=== PATIENT | male | born 1950 | race Caucasian/White ===

== ENCOUNTER 2016-11-05 06:27 | Day surgery (SDC) | payer MEDICAID ==
[~2016-11-05 06:27] MED LIST: Dextrose 5%-0.45% NaCl 1,000 ML IV SCH; Midazolam 1 MG/ML 2 ML SDV ONE; Sodium Chloride 0.9% 10 ML Syringe FLUSH PRN; fentaNYL 100 MCG/2 ML SDV ONE
[2016-11-05] MEDS ORDERED: fentaNYL 100 MCG/2 ML SDV IV ONE ×5 (06:50→09:18)
[2016-11-05] MEDS ORDERED: Midazolam 1 MG/ML 2 ML SDV IV ONE ×8 (06:52→09:18)
--- NOTE | 2016-11-05 08:18 | OR ---
{null, DATE: 11/05/2016 PROCEDURES: Total colonoscopy, NBI, and multiple cold snare polypectomies. INSTRUMENT USED: [id number]-[id number] Olympus video colonoscope PREMEDICATIONS: Fentanyl 150 mcg intravenous, Versed 4.5 mg intravenous. Nasal 2 L O2 cannula. The procedure was done under pulse oximetry, BP recording, and front desk monitor. INDICATION: The patient with recent alteration in bowel habits, persistent in nature and not responsive to medical measures. Colonoscopic examination is done for detection of any polypoid lesions and removal, endoscopic hemostasis therapy if needed. DESCRIPTION OF PROCEDURE: Initial rectal exam showed external hemorrhoidal tags. Rigid anoscopy showed small internal hemorrhoids without bleeding from them. The colonoscope was passed up to the ileocecal area, photographs were taken of the normal-appearing cecum, identified by double-bulged ileocecal folds and appendiceal orifice. The examination was a bit prolonged due to the tortuosity of the colon related to adhesions and also presence of significant amount of solid fecal material. No bleeding was noted from any of the visualized areas at the commencement of the examination. No stricture. No vascular ectasia. No large isolated ulcerations seen. No evidence of diffuse inflammatory bowel disease in the form of friability, contact bleeding, or ulcerations. The examination was compromised in quite a few areas due to the presence of solid adherent fecal material that could not be aspirated clear. In the proximal ascending colon, 3 mm sized benign-appearing polyp was noted, NBI views were obtained, photographs were taken, cold snare polypectomy was done, the tissue was retrieved and sent for histopathology. Probing the proximal sides of folds and flexures, using adequate distention and clearing of the stool material, withdrawal of the scope was made. In the distal descending colon, 5 mm sized benign-appearing polyp was noted, NBI views were obtained, photographs were taken, cold snare polypectomy was done, the tissue was retrieved and sent for histopathology. No bleeding was noted from any of the visualized areas at the completion of examination. IMPRESSION: 1. External and internal hemorrhoids. 2. Multiple colonic polyps. The patient tolerated the procedure well. [facility] /[id number] }
[2016-11-05 09:14] VITALS: BP 141/70
== END 2016-11-05 09:10 | disposition home or self-care (01) ==
LOC: DL.ENDO 06:27
PROVIDERS: ATTEND Internal Medicine Gastroenterology
DX: D12.2 Benign neoplasm of ascending colon (principal); D12.4 Benign neoplasm of descending colon; K64.8 Other hemorrhoids; J44.9 Chronic obstructive pulmonary disease, unspecified; F41.1 Generalized anxiety disorder; F32.9 Major depressive disorder, single episode, unspecified; B18.2 Chronic viral hepatitis C; F10.21 Alcohol dependence, in remission; Z98.890 Other specified postprocedural states; Z79.899 Other long term (current) drug therapy
CPT/HCPCS: 45385; J2250; J3010; J7042

== ENCOUNTER 2016-11-29 14:15 | Emergency (ER) | payer MEDICAID ==
--- NOTE | 2016-11-29 14:12 | EDM.PDOC ---
ED HPI GENERAL MEDICAL PROBLEM - General Chief Complaint: Chest Pain Stated Complaint: IN BY AMBULANCE Time Seen by Provider: 11/29/16 14:11 Source of Information: Reports: Patient, EMS Notes Reviewed, RN, RN Notes Reviewed History Limitations: Reports: No Limitations - History of Present Illness INITIAL COMMENTS - FREE TEXT/NARRATIVE: Arrives by ambulance with complaint of chest pain on/off x3 days. Patient takes nitroglycerin sublingual 0.4mg x1 today without relief of pain. EMS gave aspirin 325mg p/o/ x1. Complaining of SOB. Denies nausea or vomiting. Pain radiates to left lower elbow. Left Chest Pain Score (Numeric/FACES): 4 - Related Data Allergies Allergy/AdvReac Type Severity Reaction Status Date / Time No Known Allergies Allergy Verified 11/05/16 06:58 Home Meds: Home Meds Gabapentin [Neurontin] 600 mg PO TID 03/06/15 [History] Lisinopril 20 mg PO DAILY 03/06/15 [History] Metoprolol Succinate [Toprol XL] 50 mg PO DAILY 03/06/15 [History] Warfarin Sodium [Coumadin] 6 mg PO DAILY 03/06/15 [History] Albuterol [Ventolin HFA] 2 puff INH DAILY PRN 05/31/15 [History] Sertraline [Zoloft] 50 mg PO BEDTIME 07/04/15 [History] Fluticasone/Salmeterol [Advair 100-50] 50 mcg INH Q12H 07/05/15 [History] Famciclovir [Famvir] 250 mg PO DAILY 09/24/15 [History] Albuterol [Proventil HFA] 1 - 2 puff INH ASDIRECTED 11/04/16 [History] Aspirin [Halfprin] 1 tab PO DAILY 11/04/16 [History] Cyclobenzaprine [Flexeril] 1 tab PO ASDIRECTED PRN 11/04/16 [History] Hydrochlorothiazide 0.5 tab PO DAILY 11/04/16 [History] Ipratropium/Albuterol Sulfate [Combivent Respimat Inhal [place]] 2 puff INH ASDIRECTED 11/04/16 [History] Rosuvastatin [Crestor] 20 mg PO BEDTIME 11/04/16 [History] Simethicone 1 tab PO ASDIRECTED PRN 11/04/16 [History] Past Medical History HEENT History: Reports: Sinusitis, Other (See Below) Other HEENT History: infected mastoid and hole in right eardrum Cardiovascular History: Reports: Afib, Angina, Bypass, High Cholesterol, Hypertension, Other (See Below) Other Cardiovascular History: aorta bypass Respiratory History: Reports: COPD Gastrointestinal History: Reports: Bowel Obstruction, Chronic Constipation, Chronic Diarrhea, Colon Polyp, Diverticulosis, GERD, Hemorrhoids (internal), Hepatitis Genitourinary History: Reports: None Musculoskeletal History: Reports: Back Pain, Chronic, Other (See Below) (DJD. Foot drop, right) Other Musculoskeletal History: herniated disc from neck to back Neurological History: Reports: CVA Psychiatric History: Reports: Anxiety, Depression Endocrine/Metabolic History: Reports: None, Other (See Below) (hyperglycemia) Hematologic History: Reports: None Immunologic History: Reports: None Oncologic (Cancer) History: Reports: None Dermatologic History: Reports: None Other Dermatologic History: shingels - Infectious Disease History Infectious Disease History: Reports: Chicken Pox, Hepatitis C, Shingles - Past Surgical History HEENT Surgical History: Reports: None Cardiovascular Surgical History: Reports: Other (See Below) (bilateral fem-pop bypass 2012. Angiogram 2011.) Other Cardiovascular Surgeries/Procedures: aorta bifemoral bypass surg GI Surgical History: Reports: Colonoscopy, EGD, Hernia Repair/Other Neurological Surgical History: Reports: C-Spine Musculoskeletal Surgical History: Reports: Other (See Below) (wrist surgery.) Other Musculoskeletal Surgeries/Procedures:: cervical spine surg, R) wrist surg Social & Family History - Family History Family Medical History: Noncontributory - Tobacco Use Smoking Status *Q: Light Tobacco Smoker Years of Tobacco use: 45 Packs/Tins Daily: 0.2 Used Tobacco, but Quit: No Month Tobacco Last Used: 02/19/2013 Second Hand Smoke Exposure: Yes - Caffeine Use Caffeine Use: Reports: Coffee Other Caffeine Use: 4-5 cups - Alcohol Use Days Per Week of Alcohol Use: 0 - Recreational Drug Use Recreational Drug Use: Yes Drug Use in Last 12 Months: Yes Recreational Drug Type: Reports: Cocaine, Marijuana/Hashish Recreational Drug Use Frequency: Rarely - Living Situation & Occupation Living situation: Reports: , with Family Occupation: Disabled ED ROS GENERAL - Review of Systems Review Of Systems: ROS reveals no pertinent complaints other than HPI. ED EXAM, GENERAL - Physical Exam Exam: See Below Exam Limited By: No Limitations General Appearance: Thin (chronically ill appearing.) Eye Exam: Bilateral Eye: Normal Inspection Ears: Normal External Exam, Normal Canal, Hearing Grossly Normal, Normal TMs Nose: Normal Inspection, Normal Mucosa, No Blood Throat/Mouth: Normal Inspection, Normal Lips, Normal Teeth, Normal Gums, Normal Oropharynx, Normal Voice, No Airway Compromise Head: Atraumatic, Normocephalic Neck: Normal Inspection, Supple, Non-Tender, Full Range of Motion Respiratory/Chest: Decreased Breath Sounds (in bilateral bases, course vesicular breath sounds. ) Cardiovascular: Normal Peripheral Pulses, Regular Rate, Rhythm, No Edema, No Gallop, No JVD, No Murmur, No Rub GI/Abdominal: Normal Bowel Sounds, Soft, Non-Tender, No Organomegaly, No Distention, No Abnormal Bruit, No Mass (Male) Exam: Deferred Rectal (Males) Exam: Deferred Back Exam: Normal Inspection, Full Range of Motion, NT Extremities: Normal Inspection, Normal Range of Motion, Non-Tender, Normal Capillary Refill, No Pedal Edema Neurological: Alert, Oriented, CN II-XII Intact, Normal Cognition, Normal Gait, Normal Reflexes, No Motor/Sensory Deficits Psychiatric: Normal Affect, Normal Mood Skin Exam: Warm, Dry, Intact, Normal Color, No Rash EKG INTERPRETATION EKG Date: 11/29/16 Time: 14:16 Rhythm: other (sinus rhythm) Rate (beats/min): 60 [place]: normal P-wave: present QRS: normal ST-T: other (abnormal T, consider ischemia.) QT: normal Course - Vital Signs Last Recorded V/S: Last Vital Signs Temp 36.8 C 11/29/16 14:37 Pulse 65 11/29/16 14:37 Resp 17 11/29/16 14:37 BP 183/88 H 11/29/16 14:37 Pulse Ox 94 L 11/29/16 14:37 - Orders/Labs/Meds Orders: Active Orders 24 hr Category Date Time Status EKG 12 Lead [EKG Documentation Completion] [RC] STAT Care 11/29/16 14:15 Active Peripheral IV Care [RC] . DIRECTED Care 11/29/16 14:16 Active Sodium Chloride 0.9% [Saline Flush] Med 11/29/16 14:15 Active 10 ml FLUSH ASDIRECTED PRN Peripheral IV Insertion Adult [OM.PC] Stat Oth 11/29/16 14:15 Ordered Medication Orders Sodium Chloride (Saline Flush) 10 ml FLUSH ASDIRECTED PRN PRN Reason: Keep Vein Open Labs: Laboratory Tests 11/29/16 11/29/16 11/29/16 Range/Units 14:23 14:23 14:23 WBC 8.0 (5.0-10.0) 10^3/uL RBC 4.23 L (4.6-6.2) 10^6/uL Hgb 14.5 (14.0-18.0) g/dL Hct 41.3 (40.0-54.0) % MCV 97.6 (80-100) fL MCH 34.3 H (27.0-34.0) pg MCHC 35.1 H (33.0-35.0) g/dL Plt Count 262 (150-450) 10^3/uL Neut % (Auto) 56.9 (42.2-75.2) % Lymph % (Auto) 32.3 (20.5-50.1) % [place] % (Auto) 7.7 (2-8) % Eos % (Auto) 2.5 (1.0-3.0) % Baso % (Auto) 0.6 (0.0-1.0) % PT 10.0 (9.0-12.0) SEC INR 1.0 (0.9-1.2) APTT 29.1 (22.0-34.0) SEC Sodium 138 (135-145) mmol/L Potassium 3.4 L (3.6-5.0) mmol/L Chloride 102 (101-111) mmol/L Carbon Dioxide 24.0 (21.0-31.0) mmol/L Anion Gap 15.4 BUN 13 (7-18) mg/dL Creatinine 0.7 (0.6-1.3) mg/dL Est Cr Clr Drug Dosing 85.50 mL/min Estimated GFR (MDRD) > 60 BUN/Creatinine Ratio 18.57 Glucose 98 (74-105) mg/dL Calcium 8.6 (8.4-10.2) mg/dl Total Bilirubin 0.5 (0.2-1.0) mg/dL AST 20 (10-42) IU/L ALT 16 (10-60) IU/L Alkaline Phosphatase 62 (42-121) IU/L Troponin I < 0.02 (0.00-0.02) ng/ml Total Protein 6.8 (6.7-8.2) g/dl Albumin 3.6 (3.2-5.5) g/dl Globulin 3.2 Albumin/Globulin Ratio 1.13 Meds: Medications Generic Name Dose Route Start Last Admin Trade Name Freq PRN Reason Stop Dose Admin Sodium Chloride 10 ml 11/29/16 14:15 Saline Flush FLUSH ASDIRECTED PRN Keep Vein Open Discontinued Medications Generic Name Dose Route Start Last Admin Trade Name Freq PRN Reason Stop Dose Admin Nitroglycerin 1 gm 11/29/16 14:16 11/29/16 14:20 Nitro-Bid 2% TOP 11/29/16 14:17 1 gm ONETIME ONE Administration - Radiology Interpretation Free Text/Narrative:: Chest x-ray: Chronic COPD changes. Hyperinflation. No acute process. See rad report. Departure - Departure Time of Disposition: 15:21 Disposition: DC/Tfer to [facility] 02 Reason for Transfer *Q: Primary PCI Indicated Condition: serious Clinical Impression: Unstable angina, Acute coronary syndrome Forms: ED Department Discharge, Interfacility Transfer EMTALA - My Orders Last 24 Hours: My Active Orders 11/29/16 14:15 EKG 12 Lead [EKG Documentation Completion] [RC] STAT Sodium Chloride 0.9% [Saline Flush] 10 ml FLUSH ASDIRECTED PRN Peripheral IV Insertion Adult [OM.PC] Stat 11/29/16 14:16 Peripheral IV Care [RC] . DIRECTED - Assessment/Plan Last 24 Hours: My Active Orders 11/29/16 14:15 EKG 12 Lead [EKG Documentation Completion] [RC] STAT Sodium Chloride 0.9% [Saline Flush] 10 ml FLUSH ASDIRECTED PRN Peripheral IV Insertion Adult [OM.PC] Stat 11/29/16 14:16 Peripheral IV Care [RC] . DIRECTED
[~2016-11-29 14:15] MED LIST changes: -Dextrose 5%-0.45% NaCl 1,000 ML IV SCH; -Midazolam 1 MG/ML 2 ML SDV ONE; -fentaNYL 100 MCG/2 ML SDV ONE
[2016-11-29] MEDS ORDERED: Nitroglycerin 2% Oint 1 GM UD Packet TOP ONE (14:16)
[2016-11-29 14:41] VITALS: BP 183/88
[2016-11-29 14:49] LABS: CHLORIDE,CL 102 mmol/L (101-111); SODIUM,NA 138 mmol/L (135-145)
--- NOTE | 2016-12-21 08:52 | EKG ---
11/29/2016- SHANTELL FRANKLIN - This is a standard 12-lead EKG showing normal sinus rhythm, ventricular rate of 60 beats per minute. Normal PVR interval and QRS duration. Normal axis. No significant ST-T changes. [facility] /[id number]
== END 2016-11-29 16:10 ==
LOC: DL.ED 14:15
DX: I24.9 Acute ischemic heart disease, unspecified (principal); Z98.890 Other specified postprocedural states; I48.91 Unspecified atrial fibrillation; F32.9 Major depressive disorder, single episode, unspecified; E78.00 Pure hypercholesterolemia, unspecified; I10 Essential (primary) hypertension; F17.210 Nicotine dependence, cigarettes, uncomplicated; Z95.1 Presence of aortocoronary bypass graft; Z79.899 Other long term (current) drug therapy; J44.9 Chronic obstructive pulmonary disease, unspecified; Z86.73 Personal history of transient ischemic attack (TIA), and cerebral infarction without residual deficits; Z79.82 Long term (current) use of aspirin; Z79.01 Long term (current) use of anticoagulants
CPT/HCPCS: 36415; 71010; 80053; 84484; 85025; 85610; 85730; 93005; 99285; A9270

== ENCOUNTER 2018-03-21 08:34 | Emergency (ER) | payer MEDICARE, MEDICAID ==
[2018-03-21 08:38] VITALS: BP 153/75
[2018-03-21] MEDS ORDERED: Sodium Chloride 0.9% 10 ML Syringe FLUSH PRN (09:05)
[2018-03-21] MEDS ORDERED: Morphine 2 MG/ML Syringe IVPUSH ONE ×2 (09:08→11:02)
[2018-03-21] MEDS ORDERED: Ondansetron 4 MG/2 ML SDV IV ONE (09:08)
--- NOTE | 2018-03-21 09:10 | EDM.PDOC ---
"ED HPI GENERAL MEDICAL PROBLEM - General Chief Complaint: Gastrointestinal Problem Stated Complaint: RECTAL BLEEDING Time Seen by Provider: 03/21/18 08:45 Source of Information: Reports: Patient, Old Records, RN, RN Notes Reviewed History Limitations: Reports: No Limitations - History of Present Illness INITIAL COMMENTS - FREE TEXT/NARRATIVE: Pt presents to ER from home by POV with c/o onset of abdominal pain and bloody stools yesterday. Pt describes a deep aching pain in the suprapubic and LLQ abdomen. He admits to loss of appetite and nausea. Denies fever, chills, or vomiting. Pt states that he has experienced unexpected/unexplained weight loss of approx. 30lbs over the past year. Pt states he has had several colonoscopies. Records indicate the most recent colonoscopy was 11/05/[address] Cuenca. Pt denies shortness of breath, lightheadedness, chest pain, syncope, rectal pain, or urinary symptoms. Onset Date: 03/20/18 Duration: Constant Location: Reports: Abdomen Quality: Reports: Ache Severity: Severe Improves with: Reports: None Worsens with: Reports: None Associated Symptoms: Reports: No Other Symptoms Pelvic Pain Score (Numeric/FACES): 8 - Related Data Allergies Allergy/AdvReac Type Severity Reaction Status Date / Time No Known Allergies Allergy Verified 03/21/18 08:39 Home Meds: Home Meds Gabapentin [Neurontin] 600 mg PO TID 03/06/15 [History] Lisinopril 20 mg PO DAILY 03/06/15 [History] Metoprolol Succinate [Toprol XL] 75 mg PO DAILY 03/06/15 [History] Albuterol [Ventolin HFA] 2 puff INH DAILY PRN 05/31/15 [History] Sertraline [Zoloft] 75 mg PO BEDTIME 07/04/15 [History] Fluticasone/Salmeterol [Advair 100-50] 50 mcg INH Q12H 07/05/15 [History] Albuterol [Proventil HFA] 1 - 2 puff INH ASDIRECTED 11/04/16 [History] Hydrochlorothiazide 25 mg PO DAILY 11/04/16 [History] Ipratropium/Albuterol Sulfate [Combivent Respimat Inhal [place]] 2 puff INH QID [History] Rosuvastatin [Crestor] 20 mg PO BEDTIME 11/04/16 [History] Simethicone 1 tab PO ASDIRECTED PRN 11/04/16 [History] Clopidogrel [Plavix] 75 mg PO DAILY 03/21/18 [History] Methylcellulose [Citrucel] 15 ml PO DAILY 03/21/18 [History] Past Medical History HEENT History: Reports: Sinusitis, Other (See Below) Other HEENT History: infected mastoid and hole in right eardrum Cardiovascular History: Reports: Afib, Angina, Bypass, High Cholesterol, Hypertension, Other (See Below) Other Cardiovascular History: aorta bypass Respiratory History: Reports: COPD Gastrointestinal History: Reports: Bowel Obstruction, Chronic Constipation, Chronic Diarrhea, Colon Polyp, Diverticulosis, GERD, Hemorrhoids, Hepatitis Genitourinary History: Reports: None Musculoskeletal History: Reports: Back Pain, Chronic, Other (See Below) Other Musculoskeletal History: herniated disc from neck to back Neurological History: Reports: CVA Psychiatric History: Reports: Anxiety, Depression Endocrine/Metabolic History: Reports: None, Other (See Below) Hematologic History: Reports: None Immunologic History: Reports: None Oncologic (Cancer) History: Reports: None Dermatologic History: Reports: None Other Dermatologic History: shingels - Infectious Disease History Infectious Disease History: Reports: Chicken Pox, Hepatitis C, Shingles - Past Surgical History HEENT Surgical History: Reports: None Cardiovascular Surgical History: Reports: Other (See Below) Other Cardiovascular Surgeries/Procedures: aorta bifemoral bypass surg GI Surgical History: Reports: Colonoscopy, EGD, Hernia Repair/Other Neurological Surgical History: Reports: C-Spine Musculoskeletal Surgical History: Reports: Other (See Below) Other Musculoskeletal Surgeries/Procedures:: cervical spine surg, R) wrist surg Social & Family History - Family History Family Medical History: Noncontributory - Tobacco Use Smoking Status *Q: Current Every Day Smoker Tobacco Use Within Last Twelve Months: Cigarettes Years of Tobacco use: 50 Packs/Tins Daily: 0.5 - Caffeine Use Caffeine Use: Reports: Coffee Other Caffeine Use: 4-5 cups - Recreational Drug Use Recreational Drug Use: Yes Drug Use in Last 12 Months: No Recreational Drug Type: Reports: Marijuana/Hashish - Living Situation & Occupation Living situation: Reports: , with Family Occupation: Disabled ED ROS GENERAL - Review of Systems Review Of Systems: ROS reveals no pertinent complaints other than HPI. ED EXAM, GI/ABD - Physical Exam Exam: See Below Exam Limited By: No Limitations General Appearance: Alert, No Apparent Distress, Thin, Cachetic Eyes: Bilateral: Normal Appearance Ears: Hearing Grossly Normal Nose: Normal Inspection, Normal Mucosa, No Blood Throat/Mouth: Normal Lips, Normal Oropharynx, Normal Voice, No Airway Compromise , Other (Dry oral membranes) Head: Atraumatic, Normocephalic Neck: Normal Inspection, Supple, Non-Tender, Full Range of Motion Respiratory/Chest: No Respiratory Distress, Lungs Clear, Normal Breath Sounds, No Accessory Muscle Use, Chest Non-Tender Cardiovascular: Normal Peripheral Pulses, No Edema, No JVD, Irregularly Irregular GI/Abdominal Exam: Normal Bowel Sounds, Soft, No Distention, Tender (at suprapubic and LLQ). No: Guarding, Rigid, Rebound (Male) Exam: Deferred Rectal (Males) Exam: Bloody Stool Back Exam: No: CVA Tenderness (L), CVA Tenderness (R) Extremities: Normal Inspection, Normal Range of Motion, Non-Tender, Normal Capillary Refill, No Pedal Edema Neurological: Alert, Oriented, CN II-XII Intact, Normal Cognition, No Motor/ Sensory Deficits Psychiatric: Normal Affect, Normal Mood Skin Exam: Warm, Dry, Intact, Normal Color, No Rash EKG INTERPRETATION EKG Date: 03/21/18 Time: 08:50 Rhythm: A-Fib Rate (Beats/Min): 71 [place]: RAD-Right [place] Deviation (borderline) P-Wave: Variable QRS: Other (PVC, PAC) ST-T: Other (nonspecific T wave abnormalities) QT: Normal Comparison: NA - No Prior EKG Course - Vital Signs Last Recorded V/S: Last Vital Signs Temp 36.4 C 03/21/18 08:37 Pulse 73 03/21/18 08:37 Resp 18 03/21/18 08:37 BP 153/75 H 03/21/18 08:37 Pulse Ox 97 03/21/18 08:37 - Orders/Labs/Meds Orders: Active Orders 24 hr Category Date Time Status EKG Documentation Completion [RC] URGENT Care 03/21/18 08:44 Active Peripheral IV Care [RC] . DIRECTED Care 03/21/18 09:06 Active Abdomen Pelvis w Cont [CT] Stat Exams 03/21/18 09:43 Taken UA W/MICROSCOPIC [URIN] Stat Lab 03/21/18 09:06 Ordered Sodium Chloride 0.9% [Saline Flush] Med 03/21/18 09:05 Active 10 ml FLUSH ASDIRECTED PRN Peripheral IV Insertion Adult [OM.PC] Stat Oth 03/21/18 09:06 Ordered Medication Orders Sodium Chloride (Saline Flush) 10 ml FLUSH ASDIRECTED PRN PRN Reason: Keep Vein Open Last Admin: 03/21/18 09:22 Dose: 10 ml Labs: Laboratory Tests 03/21/18 03/21/18 03/21/18 Range/Units 08:50 08:50 08:50 WBC 10.8 H (5.0-10.0) 10^3/uL RBC 4.08 L (4.6-6.2) 10^6/uL Hgb 13.8 L (14.0-18.0) g/dL Hct 39.8 L (40.0-54.0) % MCV 97.5 (80-100) fL MCH 33.8 (27.0-34.0) pg MCHC 34.7 (33.0-35.0) g/dL Plt Count 261 (150-450) 10^3/uL Neut % (Auto) 64.5 (42.2-75.2) % Lymph % (Auto) 25.6 (20.5-50.1) % Burt % (Auto) 7.7 (2-8) % Eos % (Auto) 1.8 (1.0-3.0) % Baso % (Auto) 0.4 (0.0-1.0) % PT 9.7 (9.0-12.0) SEC INR 1.0 (0.9-1.2) APTT (22.0-34.0) SEC Sodium 137 (135-145) mmol/L Potassium 3.3 L (3.6-5.0) mmol/L Chloride 102 (101-111) mmol/L Carbon Dioxide 24.0 (21.0-31.0) mmol/L Anion Gap 14.3 BUN 31 H (7-18) mg/dL Creatinine 1.1 (0.6-1.3) mg/dL Est Cr Clr Drug Dosing 61.76 mL/min Estimated GFR (MDRD) > 60 BUN/Creatinine Ratio 28.18 Glucose 100 (74-105) mg/dL Lactic Acid (0.5-2.2) mmol/L Calcium 8.6 (8.4-10.2) mg/dl Total Bilirubin 0.7 (0.2-1.0) mg/dL AST 21 (10-42) IU/L ALT 12 (10-60) IU/L Alkaline Phosphatase 54 (42-121) IU/L Total Protein 7.0 (6.7-8.2) g/dl Albumin 3.7 (3.2-5.5) g/dl Globulin 3.3 Albumin/Globulin Ratio 1.12 Amylase (28-100) U/L Lipase (22-51) U/L 03/21/18 03/21/18 03/21/18 Range/Units 08:50 08:50 08:50 WBC (5.0-10.0) 10^3/uL RBC (4.6-6.2) 10^6/uL Hgb (14.0-18.0) g/dL Hct (40.0-54.0) % MCV (80-100) fL MCH (27.0-34.0) pg MCHC (33.0-35.0) g/dL Plt Count (150-450) 10^3/uL Neut % (Auto) (42.2-75.2) % Lymph % (Auto) (20.5-50.1) % Burt % (Auto) (2-8) % Eos % (Auto) (1.0-3.0) % Baso % (Auto) (0.0-1.0) % PT (9.0-12.0) SEC INR (0.9-1.2) APTT 26.5 (22.0-34.0) SEC Sodium (135-145) mmol/L Potassium (3.6-5.0) mmol/L Chloride (101-111) mmol/L Carbon Dioxide (21.0-31.0) mmol/L Anion Gap BUN (7-18) mg/dL Creatinine (0.6-1.3) mg/dL Est Cr Clr Drug Dosing mL/min Estimated GFR (MDRD) BUN/Creatinine Ratio Glucose (74-105) mg/dL Lactic Acid 1.2 (0.5-2.2) mmol/L Calcium (8.4-10.2) mg/dl Total Bilirubin (0.2-1.0) mg/dL AST (10-42) IU/L ALT (10-60) IU/L Alkaline Phosphatase (42-121) IU/L Total Protein (6.7-8.2) g/dl Albumin (3.2-5.5) g/dl Globulin Albumin/Globulin Ratio Amylase 117 H (28-100) U/L Lipase 25 (22-51) U/L Meds: Medications Generic Name Dose Route Start Last Admin Trade Name Freq PRN Reason Stop Dose Admin Sodium Chloride 10 ml 03/21/18 09:05 03/21/18 09:22 Saline Flush FLUSH 10 ml ASDIRECTED PRN Administration Keep Vein Open Discontinued Medications Generic Name Dose Route Start Last Admin Trade Name Freq PRN Reason Stop Dose Admin Sodium Chloride 1,000 mls @ 999 mls/hr 03/21/18 09:16 03/21/18 09:21 Normal Saline IV 03/21/18 10:16 999 mls/hr .BOLUS ONE Administration Iopamidol 75 ml 03/21/18 09:42 03/21/18 10:03 Isovue-300 (61%) IVPUSH 03/21/18 09:43 75 ml ONETIME ONE Administration Morphine Sulfate 2 mg 03/21/18 09:08 03/21/18 09:21 Morphine IVPUSH 03/21/18 09:09 2 mg ONETIME ONE Administration Ondansetron HCl 4 mg 03/21/18 09:08 03/21/18 09:21 Zofran IV 03/21/18 09:09 4 mg ONETIME ONE Administration - Radiology Interpretation Free Text/Narrative:: [facility] Final Radiology Report Call: [phone] assistance Online chat: [email or web address] Name: SHANTELL FRANKLIN Age: 68Years M Date: 03/21/2018 SSN: -- : [id number] Study: CT ABDOMEN/PELVIS W Requesting Physician: CELSA CERVANTES Images: 1 Addl Studies: Provided Clinical History: Contrast: With Contrast Medium: Isovue 300 Contrast Amount: 100 mL Contrast Method: IV Page 1 of 2 EXAM: CT Abdomen and Pelvis With Intravenous Contrast EXAM DATE/TIME: 03/21/2018 9:43 AM CLINICAL HISTORY: 68 years old, male; Low abdominal pain with bloody stool/lower gi bleed. 30lb weight loss in past 1 year. TECHNIQUE: Axial computed tomography images of the abdomen and pelvis with intravenous contrast. All CT scans at this facility use at least one of these dose optimization techniques: automated exposure control; mA and/or kV adjustment per patient size (includes targeted exams where dose is matched to clinical indication); or iterative reconstruction. Coronal and sagittal reformatted images were created and reviewed. CONTRAST: 100 ml of Isovue 300 administered intravenously. COMPARISON: CT ABDOMEN/PELVIS 09/24/2015 (report only) FINDINGS: Lower thorax: There is bibasilar centrilobular emphysema. There is bilateral dependent atelectasis. There is concentric wall thickening involving the distal thoracic esophagus which may be due to esophagitis. ABDOMEN: Liver: The liver is not enlarged. There is patchy fatty change involving the liver parenchyma. NOEMI SHANTELL | Final Radiology Report CONFIDENTIALITY STATEMENT This report is intended only for use by the referring physician, and only in accordance with law. If you received this in error, call [phone]. Page 2 of 2 Gallbladder and bile ducts: No calcified gallstones, gallbladder wall thickening , or pericholecystic inflammation. No biliary ductal dilation. Pancreas: No pancreatic mass, inflammation, or ductal dilation. Spleen: The spleen is homogeneous and is not enlarged. Adrenals: There is a 15 mm left adrenal mass with nonspecific attenuation measurements. The right adrenal gland appears to be normal. Kidneys and ureters: There are small nonobstructing calculi in both kidneys. No hydronephrosis. No solid renal mass. Stomach and bowel: There is wall thickening involving the body and fundus of the stomach with hyperenhancement. This may be due to gastritis. The stomach is not distended. No distended small or large bowel. No diverticulitis. There is rectal wall thickening. Appendix: No evidence of appendicitis. PELVIS: Bladder: No urinary bladder calculus or wall thickening. Reproductive: Unremarkable as visualized. ABDOMEN and PELVIS: Intraperitoneal space: No ascites or pneumoperitoneum. Bones/joints: Multilevel disc degeneration is present in the lumbar spine. There is mild bilateral hip joint degeneration. Soft tissues: Unremarkable. Vasculature: Prior aorto-bifemoral bypass graft which is patent. The mesenteric arteries are patent. The mesenteric and portal veins are patent. Lymph nodes: No pathologically enlarged lymph nodes. IMPRESSION: 1. No bowel obstruction or diverticulitis. 2. Rectal wall thickening which could be due to proctitis, but a mass cannot be ruled out. Consider endoscopy. 3. Findings suggesting esophagitis and gastritis. 4. Bilateral nephrolithiasis without urinary tract obstruction. 5. Stable left adrenal mass. Thank you for allowing us to participate in the care of your patient. Dictated and Authenticated by: Cooper Rob MD 03/21/2018 10:32 AM Central Time ([place] & Audi) CT Results Date: 03/21/18 Departure - Departure Time of Disposition: 10:59 Disposition: DC/Tfer to [facility] 02 Condition: Serious Clinical Impression: Acute lower GI bleeding - Discharge Information *PRESCRIPTION DRUG MONITORING PROGRAM REVIEWED*: Not Applicable *COPY OF PRESCRIPTION DRUG MONITORING REPORT IN PATIENT KENIA: Not Applicable Forms: ED Department Discharge, Interfacility Transfer EMTALA - My Orders Last 24 Hours: My Active Orders 03/21/18 08:44 EKG Documentation Completion [RC] URGENT 03/21/18 09:05 Sodium Chloride 0.9% [Saline Flush] 10 ml FLUSH ASDIRECTED PRN 03/21/18 09:06 Peripheral IV Care [RC] . DIRECTED UA W/MICROSCOPIC [URIN] Stat Peripheral IV Insertion Adult [OM.PC] Stat 03/21/18 09:43 Abdomen Pelvis w Cont [CT] Stat - Assessment/Plan Last 24 Hours: My Active Orders 03/21/18 08:44 EKG Documentation Completion [RC] URGENT 03/21/18 09:05 Sodium Chloride 0.9% [Saline Flush] 10 ml FLUSH ASDIRECTED PRN 03/21/18 09:06 Peripheral IV Care [RC] . DIRECTED UA W/MICROSCOPIC [URIN] Stat Peripheral IV Insertion Adult [OM.PC] Stat 03/21/18 09:43 Abdomen Pelvis w Cont [CT] Stat"
[2018-03-21] MEDS ORDERED: Sodium Chloride 0.9% 1,000 ML IV ONE (09:16)
[2018-03-21 09:18] LABS: ANION GAP 14.3; CHLORIDE,CL 102 mmol/L (101-111); SODIUM,NA 137 mmol/L (135-145)
[2018-03-21] MEDS ORDERED: Iopamidol 612 MG/ML 75 ML Bottle IVPUSH ONE (09:42)
== END 2018-03-21 11:59 ==
LOC: DL.ED 08:34
DX: K92.2 Gastrointestinal hemorrhage, unspecified (principal); I10 Essential (primary) hypertension; F17.210 Nicotine dependence, cigarettes, uncomplicated; Z79.899 Other long term (current) drug therapy
CPT/HCPCS: 36415; 74177; 80053; 82150; 83605; 83690; 85025; 85610; 85730; 93005; 96361; 96374; 96375; 96376; 99285; J2270; J2405; J7030; J7050; Q9967; 93010; 99284

== ENCOUNTER 2019-09-09 07:47 | Emergency (ER) | payer MEDICARE, MEDICAID ==
[2019-09-09 08:05] VITALS: BP 165/95; PULSE 105
[2019-09-09 08:32] LABS: ANION GAP 17.2 mEq/L (7-13); CHLORIDE,CL 100 mmol/L (98-107); SODIUM,NA 138 mmol/L (136-145)
[2019-09-09] MEDS ORDERED: Sodium Chloride 0.9% 1,000 ML IV ONE (09:31)
--- NOTE | 2019-09-09 11:56 | EDM.PDOC ---
Scribed by Ellie Mccoy 09/09/19 1156 for Rhina Prince NP ED HPI GENERAL MEDICAL PROBLEM - General Chief Complaint: Abdominal Pain Stated Complaint: ABDOMINAL PAIN Time Seen by Provider: 09/09/19 08:35 Source of Information: Reports: Patient, RN, RN Notes Reviewed History Limitations: Reports: No Limitations - History of Present Illness INITIAL COMMENTS - FREE TEXT/NARRATIVE: Patient presents to ER with complaints of lower abdominal pain x2 days. Patient reports inability to urinate despite drinking a lot of water in the past couple of days. He has had similar problems in the past and was straight cath. Patient states he is on medication for prostate problems and his prostate was last checked a couple of months ago and was normal. He has seen urology and had a cystoscope and was told he had BPH. He denies any family history of bladder cancer. Onset: Gradual Duration: Getting Worse Location: Reports: Other (bladder) Quality: Reports: Ache Severity: Mild Improves with: Reports: None Worsens with: Reports: None Associated Symptoms: Reports: No Other Symptoms - Related Data Allergies Allergy/AdvReac Type Severity Reaction Status Date / Time No Known Allergies Allergy Verified 03/21/18 08:39 Home Meds: Home Meds Gabapentin [Neurontin] 600 mg PO TID 03/06/15 [History] Lisinopril 20 mg PO DAILY 03/06/15 [History] Metoprolol Succinate [Toprol XL] 75 mg PO DAILY 03/06/15 [History] Albuterol [Ventolin HFA] 2 puff INH DAILY PRN 05/31/15 [History] Sertraline [Zoloft] 75 mg PO BEDTIME 07/04/15 [History] Fluticasone/Salmeterol [Advair 100-50] 50 mcg INH Q12H 07/05/15 [History] Albuterol [Proventil HFA] 1 - 2 puff INH ASDIRECTED 11/04/16 [History] Hydrochlorothiazide 25 mg PO DAILY 11/04/16 [History] Ipratropium/Albuterol Sulfate [Combivent Respimat Inhal [place]] 2 puff INH QID [History] Rosuvastatin [Crestor] 20 mg PO BEDTIME 11/04/16 [History] Simethicone 1 tab PO ASDIRECTED PRN 11/04/16 [History] Clopidogrel [Plavix] 75 mg PO DAILY 03/21/18 [History] Methylcellulose [Citrucel] 15 ml PO DAILY 03/21/18 [History] Past Medical History HEENT History: Reports: Sinusitis, Other (See Below) Other HEENT History: infected mastoid and hole in right eardrum Cardiovascular History: Reports: Afib, Angina, Bypass, High Cholesterol, Hypertension, Other (See Below) Other Cardiovascular History: aorta bypass Respiratory History: Reports: COPD Gastrointestinal History: Reports: Bowel Obstruction, Chronic Constipation, Chronic Diarrhea, Colon Polyp, Diverticulosis, GERD, Hemorrhoids, Hepatitis Genitourinary History: Reports: None Musculoskeletal History: Reports: Back Pain, Chronic, Other (See Below) Other Musculoskeletal History: herniated disc from neck to back Neurological History: Reports: CVA Psychiatric History: Reports: Anxiety, Depression Endocrine/Metabolic History: Reports: None, Other (See Below) Hematologic History: Reports: None Immunologic History: Reports: None Oncologic (Cancer) History: Reports: None Dermatologic History: Reports: None Other Dermatologic History: shingels - Infectious Disease History Infectious Disease History: Reports: Chicken Pox, Hepatitis C, Shingles - Past Surgical History HEENT Surgical History: Reports: None Cardiovascular Surgical History: Reports: Other (See Below) Other Cardiovascular Surgeries/Procedures: aorta bifemoral bypass surg GI Surgical History: Reports: Colonoscopy, EGD, Hernia Repair/Other Neurological Surgical History: Reports: C-Spine Musculoskeletal Surgical History: Reports: Other (See Below) Other Musculoskeletal Surgeries/Procedures:: cervical spine surg, R) wrist surg Social & Family History - Family History Family Medical History: Noncontributory - Caffeine Use Caffeine Use: Reports: Coffee Other Caffeine Use: 4-5 cups - Living Situation & Occupation Living situation: Reports: , with Family Occupation: Disabled ED ROS GENERAL - Review of Systems Review Of Systems: Comprehensive ROS is negative, except as noted in HPI. ED EXAM, GI/ABD - Physical Exam Exam: See Below Exam Limited By: No Limitations General Appearance: Alert, WD/WN, Mild Distress Neck: Normal Inspection, Supple, Non-Tender, Full Range of Motion Respiratory/Chest: No Respiratory Distress, Lungs Clear, Normal Breath Sounds, No Accessory Muscle Use, Chest Non-Tender Cardiovascular: Normal Peripheral Pulses, Regular Rate, Rhythm, No Edema, No Gallop, No JVD, No Murmur, No Rub GI/Abdominal Exam: Normal Bowel Sounds, Soft, Non-Tender, No Organomegaly, No Abnormal Bruit, Other (suprapubic tenderness with palpation. ) Neurological: Alert, Oriented Psychiatric: Normal Affect, Normal Mood Skin Exam: Warm, Dry Lymphatic: No Adenopathy Course - Vital Signs Last Recorded V/S: Last Vital Signs Temp 98.2 F 09/09/19 08:00 Pulse 105 H 09/09/19 08:00 Resp 18 09/09/19 08:00 BP 165/95 H 09/09/19 08:00 Pulse Ox 99 09/09/19 08:00 - Orders/Labs/Meds Orders: Active Orders 24 hr Category Date Time Status Bladder Scan [RC] ASDIRECTED Care 09/09/19 08:53 Active Enema [RC] ASDIRECTED Care 09/09/19 08:53 Active Abdomen 2V AP Flat Upright [CR] Urgent Exams 09/09/19 08:00 Ordered Labs: Laboratory Tests 09/09/19 09/09/19 09/09/19 Range/Units 08:07 08:07 11:33 WBC 10.8 H (5.0-10.0) 10^3/uL RBC 4.97 (4.6-6.2) 10^6/uL Hgb 16.5 D (14.0-18.0) g/dL Hct 46.7 (40.0-54.0) % MCV 94.0 (80-100) fL MCH 33.2 (27.0-34.0) pg MCHC 35.3 H (33.0-35.0) g/dL Plt Count 262 (150-450) 10^3/uL Neut % (Auto) 74.6 (42.2-75.2) % Lymph % (Auto) 18.2 L (20.5-50.1) % [place] % (Auto) 6.5 (2-8) % Eos % (Auto) 0.4 L (1.0-3.0) % Baso % (Auto) 0.3 (0.0-1.0) % Sodium 138 (136-145) mmol/L Potassium 3.2 L (3.5-5.1) mmol/L Chloride 100 (98-107) mmol/L Carbon Dioxide 24 (21-32) mmol/L Anion Gap 17.2 H (7-13) mEq/L BUN 26 H (7-18) mg/dL Creatinine 1.03 (0.70-1.30) mg/dL Est Cr Clr Drug Dosing 58.04 mL/min Estimated GFR (MDRD) > 60 BUN/Creatinine Ratio 25.2 (No establ ref range) Glucose 129 H (74-99) mg/dL Calcium 8.0 L (8.5-10.1) mg/dL Total Bilirubin 0.7 (0.2-1.0) mg/dL AST 16 (15-37) U/L ALT 15 L (16-63) U/L Alkaline Phosphatase 80 (46-116) U/L Total Protein 7.3 (6.4-8.2) g/dL Albumin 3.5 (3.4-5.0) g/dL Globulin 3.8 Albumin/Globulin Ratio 0.9 Urine Color Dark yellow (YELLOW) Urine Appearance Slightly cloudy (CLEAR) Urine pH 5.5 (5.0-9.0) Ur Specific [place] >= 1.030 (1.005-1.030) Urine Protein Trace H (NEGATIVE) Urine Glucose (UA) Negative (NEGATIVE) Urine Ketones Negative (NEGATIVE) Urine Occult Blood Small H (NEGATIVE) Urine Nitrite Negative (NEGATIVE) Urine Bilirubin Small H (NEGATIVE) Urine Urobilinogen 0.2 (0.2-1.0) mg/dL Ur Leukocyte Esterase Negative (NEGATIVE) Urine RBC 10-20 H /HPF Urine WBC 0-5 (0-5/HPF) /HPF Ur Epithelial Cells Rare (NOT SEEN) /HPF Amorphous Sediment Few (NOT SEEN) /HPF Urine Bacteria Rare (0-FEW/HPF) /HPF Urine Mucus Moderate H (NOT SEEN) /LPF Meds: Medications Discontinued Medications Generic Name Dose Route Start Last Admin Trade Name Freq PRN Reason Stop Dose Admin Sodium Chloride 1,000 mls @ 1,000 mls/hr 09/09/19 09:31 09/09/19 10:12 Normal Saline IV 09/09/19 10:30 1,000 mls/hr .BOLUS ONE Administration - Radiology Interpretation Free Text/Narrative:: Abdomen x-ray: Gaseous distention of several small bowel loops in the left abdomen. Moderate amount of stool in the colon. See rad report. - Re-Assessments/Exams Free Text/Narrative Re-Assessment/Exam: Reviewed exam findings, labs with UA and x-ray results with the patient. Patient was put in extended ER and had enemas with a bolus of normal saline with relief. Departure - Departure Time of Disposition: 11:17 Disposition: Home, Self-Care 01 Condition: Good Clinical Impression: Constipation Qualifiers: Constipation type: unspecified constipation type Qualified Code(s): K59.00 - Constipation, unspecified - Discharge Information Instructions: Constipation, Adult Forms: ED Department Discharge Additional Instructions: Push fluids. Eat foods high in fiber. Symptoms to return to the ER reviewed with the patient. Follow up with PCP next week. Sepsis Event Note - Evaluation Sepsis Screening Result: No Definite Risk - Focused Exam Vital Signs: Vital Signs Temp Pulse Resp BP Pulse Ox 09/09/19 08:00 98.2 F 105 H 18 165/95 H 99 Date Exam was Performed: 09/09/19 Time Exam was Performed: 11:55 - My Orders Last 24 Hours: My Active Orders 09/09/19 08:00 Abdomen 2V AP Flat Upright [CR] Urgent 09/09/19 08:53 Bladder Scan [RC] ASDIRECTED Enema [RC] ASDIRECTED - Assessment/Plan Last 24 Hours: My Active Orders 09/09/19 08:00 Abdomen 2V AP Flat Upright [CR] Urgent 09/09/19 08:53 Bladder Scan [RC] ASDIRECTED Enema [RC] ASDIRECTED I have read and agree with the documentation that has been completed regarding this visit. By signing this record, I attest that the documentation was completed in my physical presence and is an accurate record of the encounter.
== END 2019-09-09 12:10 | disposition home or self-care (01) ==
LOC: DL.ED 07:47
DX: K59.00 Constipation, unspecified (principal); I10 Essential (primary) hypertension; Z79.899 Other long term (current) drug therapy
CPT/HCPCS: 36415; 74019; 80053; 81001; 85025; 96360; 99282; 99284-25; J7030

== ENCOUNTER 2019-12-29 16:34 | Emergency (ER) | payer MEDICARE, MEDICAID ==
[2019-12-29 16:44] VITALS: BP 169/84; PULSE 65
== END 2019-12-29 17:04 | disposition home or self-care (01) ==
LOC: DL.ED 16:34
DX: Z53.21 Procedure and treatment not carried out due to patient leaving prior to being seen by health care provider (principal)

== ENCOUNTER 2020-03-10 07:35 | Emergency (ER) | payer MEDICARE, MEDICAID ==
[2020-03-10 07:43] VITALS: BP 156/88; PULSE 65
[2020-03-10] MEDS ORDERED: Triamcinolone Acetonide 40 MG/ML 1 ML MDV IM ONE (08:00)
--- NOTE | 2020-03-10 08:06 | EDM.PDOC ---
ED HPI GENERAL MEDICAL PROBLEM - General Chief Complaint: Respiratory Problem Stated Complaint: Patient report COPD difficulty breathing Time Seen by Provider: 03/10/20 07:58 Source of Information: Reports: Patient History Limitations: Reports: No Limitations - History of Present Illness INITIAL COMMENTS - FREE TEXT/NARRATIVE: Pt is here for acute worsening of his COPD. He became very short of breath last night and found his oxygen was only 88%. He tried using his rescue inhalers without relief. He notes his anxiety flared which also made his breathing worse. He feels ok now, but has noted an increase in the frequency of these episodes in the last few days. He reports taking his controller inhalers daily/twice daily as directed. No fevers or chills. Lives alone and has not been exposed to anyone who was sick. No COVID exposure. He feels like this is the same as previous exacerbations he has had. Onset: Today Duration: Intermittent, Recurring, Resolved Prior to Arrival - Related Data Allergies Allergy/AdvReac Type Severity Reaction Status Date / Time No Known Allergies Allergy Verified 03/10/20 07:47 Home Meds: Home Meds Gabapentin [Neurontin] 600 mg PO TID 03/06/15 [History] Lisinopril 20 mg PO DAILY 03/06/15 [History] Metoprolol Succinate [Toprol XL] 75 mg PO DAILY 03/06/15 [History] Albuterol [Ventolin HFA] 2 puff INH DAILY PRN 05/31/15 [History] Sertraline [Zoloft] 75 mg PO BEDTIME 07/04/15 [History] Fluticasone/Salmeterol [Advair 100-50] 50 mcg INH Q12H 07/05/15 [History] Albuterol [Proventil HFA] 1 - 2 puff INH ASDIRECTED 11/04/16 [History] Hydrochlorothiazide 25 mg PO DAILY 11/04/16 [History] Ipratropium/Albuterol Sulfate [Combivent Respimat Inhal [place]] 2 puff INH QID 11/04/16 [History] Rosuvastatin [Crestor] 20 mg PO BEDTIME 11/04/16 [History] Simethicone 1 tab PO ASDIRECTED PRN 11/04/16 [History] Clopidogrel [Plavix] 75 mg PO DAILY 03/21/18 [History] Methylcellulose [Citrucel] 15 ml PO DAILY 03/21/18 [History] Past Medical History HEENT History: Reports: Sinusitis, Other (See Below) Other HEENT History: infected mastoid and hole in right eardrum Cardiovascular History: Reports: Afib, Angina, Bypass, High Cholesterol, Hypertension, Other (See Below) Other Cardiovascular History: aorta bypass Respiratory History: Reports: COPD Gastrointestinal History: Reports: Bowel Obstruction, Chronic Constipation, Chronic Diarrhea, Colon Polyp, Diverticulosis, GERD, Hemorrhoids, Hepatitis Genitourinary History: Reports: None Musculoskeletal History: Reports: Back Pain, Chronic, Other (See Below) Other Musculoskeletal History: herniated disc from neck to back Neurological History: Reports: CVA Psychiatric History: Reports: Anxiety, Depression Endocrine/Metabolic History: Reports: None, Other (See Below) Hematologic History: Reports: None Immunologic History: Reports: None Oncologic (Cancer) History: Reports: None Dermatologic History: Reports: None Other Dermatologic History: shingels - Infectious Disease History Infectious Disease History: Reports: Chicken Pox, Hepatitis C, Shingles - Past Surgical History HEENT Surgical History: Reports: None Cardiovascular Surgical History: Reports: Other (See Below) Other Cardiovascular Surgeries/Procedures: aorta bifemoral bypass surg GI Surgical History: Reports: Colonoscopy, EGD, Hernia Repair/Other Neurological Surgical History: Reports: C-Spine Musculoskeletal Surgical History: Reports: Other (See Below) Other Musculoskeletal Surgeries/Procedures:: cervical spine surg, R) wrist surg Social & Family History - Family History Family Medical History: Noncontributory - Tobacco Use Smoking Status *Q: Former Smoker Used Tobacco, but Quit: Yes Month/Year Tobacco Last Used: unknown - Caffeine Use Caffeine Use: Reports: None Other Caffeine Use: 4-5 cups - Recreational Drug Use Recreational Drug Use: No - Living Situation & Occupation Living situation: Reports: , with Family Occupation: Disabled ED ROS GENERAL - Review of Systems Review Of Systems: Comprehensive ROS is negative, except as noted in HPI. ED EXAM, GENERAL - Physical Exam Exam: See Below General Appearance: Alert, WD/WN, No Apparent Distress Ears: Normal External Exam Head: Atraumatic, Normocephalic Neck: Normal Inspection, Supple Respiratory/Chest: No Respiratory Distress, Lungs Clear, Normal Breath Sounds, No Accessory Muscle Use, Chest Non-Tender Cardiovascular: Normal Peripheral Pulses, Regular Rate, Rhythm, No Murmur GI/Abdominal: Normal Bowel Sounds, Soft, Non-Tender (Male) Exam: Deferred Rectal (Males) Exam: Deferred Back Exam: Normal Inspection, Full Range of Motion Extremities: Normal Inspection, Normal Range of Motion Neurological: Alert, Oriented, Normal Cognition, Normal Gait Psychiatric: Normal Affect, Normal Mood Skin Exam: Warm, Dry, Intact, Normal Color, No Rash Course - Vital Signs Last Recorded V/S: Last Vital Signs Temp 97.9 F 03/10/20 07:42 Pulse 65 03/10/20 07:42 Resp 20 03/10/20 07:42 BP 156/88 H 03/10/20 07:42 Pulse Ox 96 03/10/20 07:42 - Orders/Labs/Meds Orders: Active Orders 24 hr Category Date Time Status Triamcinolone Acetonide [Kenalog-40] Med 03/10/20 08:00 Once 40 mg IM ONETIME ONE Medication Orders Triamcinolone Acetonide (Kenalog-40) 40 mg IM ONETIME ONE Stop: 03/10/20 08:01 Meds: Medications Generic Name Dose Route Start Last Admin Trade Name Frekailey PRN Reason Stop Dose Admin Triamcinolone Acetonide 40 mg 03/10/20 08:00 Kenalog-40 IM 03/10/20 08:01 ONETIME ONE Departure - Departure Time of Disposition: 08:05 Disposition: Home, Self-Care 01 Condition: Good Clinical Impression: COPD with exacerbation - Discharge Information *PRESCRIPTION DRUG MONITORING PROGRAM REVIEWED*: Not Applicable *COPY OF PRESCRIPTION DRUG MONITORING REPORT IN PATIENT KENIA: Not Applicable Instructions: Chronic Obstructive Pulmonary Disease, [id number] Sepsis Event Note (ED) - Evaluation Sepsis Screening Result: No Definite Risk - Focused Exam Vital Signs: Vital Signs Temp Pulse Resp BP Pulse Ox 03/10/20 07:42 97.9 F 65 20 156/88 H 96 - My Orders Last 24 Hours: My Active Orders 03/10/20 08:00 Triamcinolone Acetonide [Kenalog-40] 40 mg IM ONETIME ONE - Assessment/Plan Last 24 Hours: My Active Orders 03/10/20 08:00 Triamcinolone Acetonide [Kenalog-40] 40 mg IM ONETIME ONE Assessment:: 70 yo male with COPD who presents with acute exacerbation Plan: kenalog IM given Prednisone burst reviewed reasons to call/return to the ER fu with PCP in 2-3 days
== END 2020-03-10 08:12 | disposition home or self-care (01) ==
LOC: DL.ED 07:35
DX: J44.1 Chronic obstructive pulmonary disease with (acute) exacerbation (principal); I48.91 Unspecified atrial fibrillation; I10 Essential (primary) hypertension; F41.9 Anxiety disorder, unspecified; F32.9 Major depressive disorder, single episode, unspecified; E78.00 Pure hypercholesterolemia, unspecified; Z86.73 Personal history of transient ischemic attack (TIA), and cerebral infarction without residual deficits; Z87.891 Personal history of nicotine dependence; Z79.899 Other long term (current) drug therapy; Z79.02 Long term (current) use of antithrombotics/antiplatelets
CPT/HCPCS: 96372; 99283; 99284; J3301

== ENCOUNTER 2022-12-29 07:35 | Day surgery (SDC) | payer MEDICARE, MEDICAID ==
[2022-12-29] MEDS ORDERED: fentaNYL 100 MCG/2 ML SDV IV ONE (07:36)
[2022-12-29] MEDS ORDERED: Midazolam 1 MG/ML 2 ML SDV IV ONE (07:36)
[2022-12-29] MEDS: Dextrose 5%-0.45% NaCl 1,000 ML IV SCH (08:00)
[2022-12-29] MEDS ORDERED: Midazolam 1 MG/ML 2 ML SDV ONE (08:23)
[2022-12-29] MEDS ORDERED: fentaNYL 100 MCG/2 ML SDV ONE (08:23)
[2022-12-29] MEDS: fentaNYL 100 MCG/2 ML SDV IV ONE ×2 (08:31)
[2022-12-29] MEDS: Midazolam 1 MG/ML 2 ML SDV IV ONE ×2 (08:32)
[2022-12-29 10:08] VITALS: BP 113/55; PULSE 51
== END 2022-12-29 10:30 | disposition home or self-care (01) ==
LOC: DL.ENDO 07:35
PROVIDERS: ATTEND Internal Medicine Gastroenterology
DX: K31.89 Other diseases of stomach and duodenum (principal); I25.10 Atherosclerotic heart disease of native coronary artery without angina pectoris; Z86.73 Personal history of transient ischemic attack (TIA), and cerebral infarction without residual deficits
CPT/HCPCS: 43239; 87077; J2250; J3010; J7042; 88305

== ENCOUNTER 2023-03-04 22:16 | Emergency (ER) | payer MEDICARE, MEDICAID ==
[2023-03-04] MEDS ORDERED: Sodium Chloride 0.9% 10 ML Syringe FLUSH PRN (22:18)
[2023-03-04] MEDS ORDERED: Sodium Chloride 0.9% 1,000 ML IV ONE (22:19)
[2023-03-04 22:34] LABS: BASOPHILS PERCENT AUTO 0.5 % (0.0-1.0); EOSINOPHILS PERCENT AUTO 5.3 % (1.0-3.0); HEMATOCRIT 33.2 % (40.0-54.0); HEMOGLOBIN 11.6 g/dL (14.0-18.0); LYMPHOCYTES PERCENT AUTO 22.2 % (20.5-50.1); MEAN CORPUSCULAR HEMOGLOBIN 34.6 pg (27.0-34.0); MEAN CORPUSCULAR HGB CONC 34.9 g/dL (33.0-35.0); MEAN CORPUSCULAR VOLUME 99.1 fL (80-100); MONOCYTES PERCENT AUTO 10.4 % (2-8); NEUTROPHILS PERCENT AUTO 61.6 % (42.2-75.2); PLATELET COUNT,PLT 245 10^3/uL (150-450); RED BLOOD CELL COUNT 3.35 10^6/uL (4.6-6.2); WHITE BLOOD CELL COUNT,WBC 7.8 10^3/uL (5.0-10.0)
[2023-03-04 22:54] LABS: A/G RATIO 0.9; ALBUMIN 2.8 g/dL (3.4-5.0); ANION GAP 15.4 mEq/L (7-13); BILIRUBIN TOTAL 0.3 mg/dL (0.2-1.0); BUN/CREATININE RATIO 17.2 (No establ ref range); CREATININE 0.87 mg/dL (0.70-1.30); EST CRCL DRUG DOSING (CG) 61.43 mL/min; POTASSIUM,K 3.4 mmol/L (3.5-5.1); PROTEIN TOTAL,TP 5.9 g/dL (6.4-8.2)
[2023-03-04 22:57] VITALS: BP 145/59; PULSE 68
[2023-03-04 22:57] LABS: LACTIC ACID 1.1 mmol/L (0.4-2.0)
[2023-03-04] MEDS ORDERED: Bisacodyl 10 MG Supp RECTAL ONE (22:58)
== END 2023-03-05 03:01 | disposition swing bed (61) ==
LOC: DL.ED 22:16
DX: K56.41 Fecal impaction (principal); I48.91 Unspecified atrial fibrillation; E78.00 Pure hypercholesterolemia, unspecified; I10 Essential (primary) hypertension; K21.9 Gastro-esophageal reflux disease without esophagitis; Z79.899 Other long term (current) drug therapy
CPT/HCPCS: 36415; 74018; 80053; 83605; 85025; 96360; 99284; A9270; J7030; J3490

== ENCOUNTER 2023-03-22 11:20 | Emergency (ER) | payer MEDICARE, MEDICAID ==
[2023-03-22 11:42] LABS: BASOPHILS PERCENT AUTO 0.3 % (0.0-1.0); EOSINOPHILS PERCENT AUTO 3.2 % (1.0-3.0); HEMATOCRIT 33.1 % (40.0-54.0); HEMOGLOBIN 11.3 g/dL (14.0-18.0); LYMPHOCYTES PERCENT AUTO 27.2 % (20.5-50.1); MEAN CORPUSCULAR HEMOGLOBIN 34.6 pg (27.0-34.0); MEAN CORPUSCULAR HGB CONC 34.1 g/dL (33.0-35.0); MEAN CORPUSCULAR VOLUME 101.2 fL (80-100); MONOCYTES PERCENT AUTO 9.9 % (2-8); NEUTROPHILS PERCENT AUTO 59.4 % (42.2-75.2); PLATELET COUNT,PLT 215 10^3/uL (150-450); RED BLOOD CELL COUNT 3.27 10^6/uL (4.6-6.2); WHITE BLOOD CELL COUNT,WBC 7.2 10^3/uL (5.0-10.0)
[2023-03-22 12:00] VITALS: BP 166/71; PULSE 74
[2023-03-22 12:09] LABS: ALANINE AMINOTRANSFERASE,ALT 13 U/L (16-63); ALBUMIN 2.9 g/dL (3.4-5.0); ALKALINE PHOSPHATASE 63 U/L (46-116); ANION GAP 10.4 mEq/L (7-13); ASPARTATE AMNIOTRANSFERASE,AST 12 U/L (15-37); BILIRUBIN TOTAL 0.5 mg/dL (0.2-1.0); BLOOD UREA NITROGEN,BUN 13 mg/dL (7-18); BUN/CREATININE RATIO 15.1 (No establ ref range); CALCIUM 8.2 mg/dL (8.5-10.1); CARBON DIOXIDE,CO2 28 mmol/L (21-32); CHLORIDE,CL 108 mmol/L (98-107); CREATININE 0.86 mg/dL (0.70-1.30); GLUCOSE RANDOM 102 mg/dL (70-99); POTASSIUM,K 3.4 mmol/L (3.5-5.1); PROTEIN TOTAL,TP 6.2 g/dL (6.4-8.2); SODIUM,NA 143 mmol/L (136-145)
[2023-03-22 12:10] LABS: A/G RATIO 0.88; ESTIMATED GFR 93 mL/min (>=60)
[2023-03-22] MEDS ORDERED: Ketorolac 30 MG/ML SDV IVPUSH ONE (12:27)
[2023-03-22 13:37] LABS: APPEARANCE,URINE CLEAR (CLEAR); BILIRUBIN,URINE NEGATIVE (NEGATIVE); COLOR,URINE YELLOW (YELLOW); GLUCOSE,URINE NEGATIVE (NEGATIVE); KETONES,URINE NEGATIVE (NEGATIVE); LEUKOCYTE ESTERASE,URINE NEGATIVE (NEGATIVE); NITRITE,URINE NEGATIVE (NEGATIVE); OCCULT BLOOD,URINE NEGATIVE (NEGATIVE); PROTEIN,URINE NEGATIVE (NEGATIVE); UROBILINOGEN,URINE 0.2 mg/dL (0.2-1.0)
[2023-03-22 13:52] LABS: BACTERIA,URINE RARE /HPF (0-FEW/HPF); EPITHELIAL CELLS,URINE RARE /HPF (NOT SEEN); MUCUS,URINE NOT SEEN /LPF (NOT SEEN); RBC,URINE 0-5 /HPF (0-5); WBC,URINE NOT SEEN /HPF (0-5/HPF)
== END 2023-03-22 13:55 | disposition home or self-care (01) ==
LOC: DL.ED 11:20
DX: G44.319 Acute post-traumatic headache, not intractable (principal); M54.50 Low back pain, unspecified; J44.9 Chronic obstructive pulmonary disease, unspecified; E78.00 Pure hypercholesterolemia, unspecified; I10 Essential (primary) hypertension; Z86.73 Personal history of transient ischemic attack (TIA), and cerebral infarction without residual deficits; Z95.5 Presence of coronary angioplasty implant and graft; Z79.01 Long term (current) use of anticoagulants; Z79.899 Other long term (current) drug therapy
CPT/HCPCS: 36415; 70450; 72125; 72131; 80053; 81001; 85025; 96374; 99284; 99284-25; J1885

== ENCOUNTER 2023-04-01 12:36 | Inpatient (IN) | payer MEDICARE, MEDICAID ==
[2023-04-01] MEDS ORDERED: Sodium Chloride 0.9% 10 ML Syringe FLUSH PRN (12:44)
[2023-04-01] MEDS ORDERED: Sodium Chloride 0.9% 1,000 ML IV ONE ×2 (13:02→15:09)
[2023-04-01 13:08] LABS: BASOPHILS PERCENT AUTO 0.3 % (0.0-1.0); EOSINOPHILS PERCENT AUTO 1.9 % (1.0-3.0); HEMATOCRIT 36.1 % (40.0-54.0); HEMOGLOBIN 12.3 g/dL (14.0-18.0); LYMPHOCYTES PERCENT AUTO 18.6 % (20.5-50.1); MEAN CORPUSCULAR HEMOGLOBIN 34.1 pg (27.0-34.0); MEAN CORPUSCULAR HGB CONC 34.1 g/dL (33.0-35.0); MONOCYTES PERCENT AUTO 7.9 % (2-8); NEUTROPHILS PERCENT AUTO 71.3 % (42.2-75.2); PLATELET COUNT,PLT 264 10^3/uL (150-450); RED BLOOD CELL COUNT 3.61 10^6/uL (4.6-6.2); WHITE BLOOD CELL COUNT,WBC 6.5 10^3/uL (5.0-10.0)
[2023-04-01 13:26] LABS: ALBUMIN 3.2 g/dL (3.4-5.0); BILIRUBIN TOTAL 0.6 mg/dL (0.2-1.0); BUN/CREATININE RATIO 20.8 (No establ ref range); C-REACTIVE PROTEIN 4.83 ng/dL (<=0.30); CALCIUM 9.1 mg/dL (8.5-10.1); CREATININE 1.06 mg/dL (0.70-1.30); EST CRCL DRUG DOSING (CG) 47.53 mL/min; MAGNESIUM 1.7 mg/dL (1.8-2.4); PROTEIN TOTAL,TP 6.9 g/dL (6.4-8.2)
[2023-04-01 13:27] LABS: A/G RATIO 0.86
[2023-04-01 13:31] LABS: LACTIC ACID 0.9 mmol/L (0.4-2.0)
[2023-04-01] MEDS ORDERED: Potassium Chloride 10 MEQ Tab.ER PO ONE (13:46)
[2023-04-01 14:44] LABS: CORONAVIRUS COVID-19 NAA NEGATIVE (NEGATIVE); INFLUENZA A NAA NEGATIVE (NEGATIVE); INFLUENZA B NAA NEGATIVE (NEGATIVE)
[2023-04-01 15:18] LABS: APPEARANCE,URINE CLEAR (CLEAR); BILIRUBIN,URINE NEGATIVE (NEGATIVE); COLOR,URINE YELLOW (YELLOW); GLUCOSE,URINE NEGATIVE (NEGATIVE); KETONES,URINE 15 (NEGATIVE); LEUKOCYTE ESTERASE,URINE NEGATIVE (NEGATIVE); NITRITE,URINE NEGATIVE (NEGATIVE); OCCULT BLOOD,URINE NEGATIVE (NEGATIVE); PROTEIN,URINE 30 (NEGATIVE)
[2023-04-01 15:26] LABS: BACTERIA,URINE FEW /HPF (0-FEW/HPF); EPITHELIAL CELLS,URINE RARE /HPF (NOT SEEN); HYALINE CASTS,URINE FEW; MUCUS,URINE MODERATE /LPF (NOT SEEN); RBC,URINE 0-5 /HPF (0-5); WBC,URINE 0-5 /HPF (0-5/HPF)
[2023-04-01] MEDS ORDERED: Bisacodyl 5 MG Tab PO PRN (18:04)
[2023-04-01] MEDS ORDERED: Ondansetron 4 MG/2 ML SDV IVPUSH PRN (18:04)
[2023-04-01] MEDS ORDERED: Acetaminophen 325 MG Tab PO PRN (18:04)
[2023-04-01] MEDS ORDERED: Magnesium Hydroxide 400 MG/5 ML Susp 30 ML Cup PO PRN (18:04)
[2023-04-01] MEDS ORDERED: Acetaminophen/HYDROcodone 325-5 MG Tab PO PRN (18:04)
[2023-04-01] MEDS ORDERED: Albuterol 0.083% 2.5 MG/3 ML Neb Soln NEB PRN (18:04)
[2023-04-01] MEDS ORDERED: Polyethylene Glycol 3350 Powder 17 GM Packet PO PRN (18:04)
[2023-04-01] MEDS ORDERED: Sodium Chloride 0.9% 1,000 ML IV SCH (18:15)
[2023-04-01] MEDS: Acetaminophen/oxyCODONE 325-5 MG Tab PO PRN (18:42)
[2023-04-01] MEDS: Enoxaparin 40 MG/0.4 ML Syringe SUBCUT SCH (18:42)
[2023-04-02] MEDS: Albuterol/Ipratropium 3.0-0.5 MG/3 ML Neb Soln NEB PRN (05:17)
[2023-04-02 06:30] LABS: BASOPHILS PERCENT AUTO 0.2 % (0.0-1.0); EOSINOPHILS PERCENT AUTO 5.5 % (1.0-3.0); HEMATOCRIT 35.1 % (40.0-54.0); HEMOGLOBIN 12.8 g/dL (14.0-18.0); LYMPHOCYTES PERCENT AUTO 31.6 % (20.5-50.1); MEAN CORPUSCULAR HEMOGLOBIN 36.9 pg (27.0-34.0); MEAN CORPUSCULAR HGB CONC 36.5 g/dL (33.0-35.0); MEAN CORPUSCULAR VOLUME 101.2 fL (80-100); MONOCYTES PERCENT AUTO 10.7 % (2-8); PLATELET COUNT,PLT 231 10^3/uL (150-450); RED BLOOD CELL COUNT 3.47 10^6/uL (4.6-6.2); WHITE BLOOD CELL COUNT,WBC 6.4 10^3/uL (5.0-10.0)
[2023-04-02 06:54] LABS: ANION GAP 12.6 mEq/L (7-13); CALCIUM 8.3 mg/dL (8.5-10.1); CREATININE 0.92 mg/dL (0.70-1.30); EST CRCL DRUG DOSING (CG) 52.26 mL/min; POTASSIUM,K 3.6 mmol/L (3.5-5.1)
[2023-04-02] MEDS: Acetaminophen/oxyCODONE 325-5 MG Tab PO PRN ×2 (07:58→18:43)
[2023-04-02] MEDS: Enoxaparin 40 MG/0.4 ML Syringe SUBCUT SCH (08:01)
[2023-04-02] MEDS ORDERED: Potassium Chloride 10 MEQ Tab.ER PO ONE (08:10)
[2023-04-03] MEDS: Albuterol/Ipratropium 3.0-0.5 MG/3 ML Neb Soln NEB PRN (05:52)
[2023-04-03] MEDS: Acetaminophen/oxyCODONE 325-5 MG Tab PO PRN ×3 (05:52→14:56)
[2023-04-03] MEDS: Docusate Sodium 100 MG Cap PO PRN ×2 (05:52→21:46)
[2023-04-03 06:38] LABS: ANION GAP 11.2 mEq/L (7-13); CALCIUM 8.3 mg/dL (8.5-10.1); CREATININE 0.91 mg/dL (0.70-1.30); EST CRCL DRUG DOSING (CG) 55.27 mL/min; POTASSIUM,K 4.2 mmol/L (3.5-5.1)
[2023-04-03 06:39] LABS: BASOPHILS PERCENT AUTO 0.1 % (0.0-1.0); EOSINOPHILS PERCENT AUTO 5.2 % (1.0-3.0); HEMATOCRIT 36.9 % (40.0-54.0); HEMOGLOBIN 12.5 g/dL (14.0-18.0); LYMPHOCYTES PERCENT AUTO 25.4 % (20.5-50.1); MEAN CORPUSCULAR HEMOGLOBIN 34.2 pg (27.0-34.0); MEAN CORPUSCULAR HGB CONC 33.9 g/dL (33.0-35.0); MEAN CORPUSCULAR VOLUME 101.1 fL (80-100); MONOCYTES PERCENT AUTO 9.6 % (2-8); NEUTROPHILS PERCENT AUTO 59.7 % (42.2-75.2); PLATELET COUNT,PLT 239 10^3/uL (150-450); RED BLOOD CELL COUNT 3.65 10^6/uL (4.6-6.2); WHITE BLOOD CELL COUNT,WBC 7.9 10^3/uL (5.0-10.0)
[2023-04-03] MEDS: Enoxaparin 40 MG/0.4 ML Syringe SUBCUT SCH (08:39)
[2023-04-03] MEDS ORDERED: Albuterol 6.7 GM Inhaler INH PRN (09:00)
[2023-04-03] MEDS ORDERED: Acetaminophen/HYDROcodone 325-5 MG Tab PO PRN (09:00)
[2023-04-03] MEDS ORDERED: Methylcellulose Powder 479 GM Jar PO PRN (09:02)
[2023-04-03] MEDS: Gabapentin 300 MG Cap PO SCH ×3 (09:33→21:46)
[2023-04-03] MEDS: Metoprolol Succinate 25 MG Tab.ER PO SCH (09:34)
[2023-04-03] MEDS: Clopidogrel 75 MG Tab PO SCH (09:34)
[2023-04-03] MEDS: Omeprazole 20 MG Cap.CR PO SCH (09:35)
[2023-04-03] MEDS ORDERED: FLU (Fluad Quad) 2023-24(65UP)/MF59C/PF 60 MCG/0.5 ML Syringe IM ONE (10:00)
[2023-04-03] MEDS ORDERED: Ipratropium 0.02% 0.5 MG/2.5 ML Neb Soln INH SCH (12:00)
[2023-04-03] MEDS ORDERED: Diazepam 5 MG Tab PO SCH (21:00)
[2023-04-03] MEDS ORDERED: traZODone 50 MG Tab PO SCH (21:00)
[2023-04-03] MEDS ORDERED: Tamsulosin 0.4 MG Cap.ER PO SCH (21:00)
[2023-04-04] MEDS: Acetaminophen/oxyCODONE 325-5 MG Tab PO PRN ×3 (00:34→10:41)
[2023-04-04 06:04] LABS: BASOPHILS PERCENT AUTO 0.1 % (0.0-1.0); HEMATOCRIT 36.3 % (40.0-54.0); HEMOGLOBIN 12.1 g/dL (14.0-18.0); LYMPHOCYTES PERCENT AUTO 19.7 % (20.5-50.1); MEAN CORPUSCULAR HEMOGLOBIN 33.5 pg (27.0-34.0); MEAN CORPUSCULAR HGB CONC 33.3 g/dL (33.0-35.0); MEAN CORPUSCULAR VOLUME 100.6 fL (80-100); MONOCYTES PERCENT AUTO 7.4 % (2-8); NEUTROPHILS PERCENT AUTO 68.8 % (42.2-75.2); PLATELET COUNT,PLT 237 10^3/uL (150-450); RED BLOOD CELL COUNT 3.61 10^6/uL (4.6-6.2); WHITE BLOOD CELL COUNT,WBC 7.7 10^3/uL (5.0-10.0)
[2023-04-04] MEDS: Omeprazole 20 MG Cap.CR PO SCH (06:10)
[2023-04-04 06:18] LABS: ANION GAP 10.1 mEq/L (7-13); CALCIUM 8.5 mg/dL (8.5-10.1); CREATININE 0.93 mg/dL (0.70-1.30); EST CRCL DRUG DOSING (CG) 54.08 mL/min; POTASSIUM,K 4.1 mmol/L (3.5-5.1)
[2023-04-04] MEDS: Albuterol/Ipratropium 3.0-0.5 MG/3 ML Neb Soln NEB PRN (06:38)
[2023-04-04] MEDS: Docusate Sodium 100 MG Cap PO PRN (08:38)
[2023-04-04] MEDS: Metoprolol Succinate 25 MG Tab.ER PO SCH (08:39)
[2023-04-04] MEDS: Gabapentin 300 MG Cap PO SCH (08:40)
[2023-04-04] MEDS: Clopidogrel 75 MG Tab PO SCH (08:40)
[2023-04-04] MEDS: Enoxaparin 40 MG/0.4 ML Syringe SUBCUT SCH (08:41)
[2023-04-04 11:32] VITALS: BP 118/60; PULSE 64
== END 2023-04-04 11:30 | disposition home or self-care (01) | DRG 948 ==
LOC: DL.ED 12:36 → DL.MS 15:31 → DL.ED 16:17
PROVIDERS: ADMIT Internal Medicine; ATTEND Internal Medicine
DX: R64 Cachexia (principal); C34.11 Malignant neoplasm of upper lobe, right bronchus or lung; Z68.1 Body mass index [BMI] 19.9 or less, adult; R29.6 Repeated falls; I10 Essential (primary) hypertension; I48.91 Unspecified atrial fibrillation; G89.29 Other chronic pain; M54.9 Dorsalgia, unspecified; I25.10 Atherosclerotic heart disease of native coronary artery without angina pectoris; Z20.822 Contact with and (suspected) exposure to COVID-19; I73.9 Peripheral vascular disease, unspecified; Z95.1 Presence of aortocoronary bypass graft; J44.9 Chronic obstructive pulmonary disease, unspecified; E78.00 Pure hypercholesterolemia, unspecified; K59.09 Other constipation; K21.9 Gastro-esophageal reflux disease without esophagitis; F41.9 Anxiety disorder, unspecified; E86.0 Dehydration; M54.2 Cervicalgia; F32.A Depression, unspecified; Z95.5 Presence of coronary angioplasty implant and graft; Z79.02 Long term (current) use of antithrombotics/antiplatelets; Z86.73 Personal history of transient ischemic attack (TIA), and cerebral infarction without residual deficits; Z79.899 Other long term (current) drug therapy; Z87.891 Personal history of nicotine dependence
CPT/HCPCS: 0240U; 36415; 71045; 80048; 80053; 81001; 83605; 83735; 84484; 85025; 86140; 93005; 93010; 94010; 94060; 94640; 94667; 94668; 94760; 96360; 97161-GP; 97165-GO; 99233; 99239; 99283; 99285; 99285-25; A9270-GY; J1650; J3490; J7030; J7620-GY

== ENCOUNTER 2023-04-20 10:52 | Inpatient (IN) | payer MEDICARE, MEDICAID ==
[2023-04-20] MEDS ORDERED: Sodium Chloride 0.9% 10 ML Syringe FLUSH PRN (11:02)
[2023-04-20 11:12] LABS: BASOPHILS PERCENT AUTO 0.3 % (0.0-1.0); EOSINOPHILS PERCENT AUTO 5.4 % (1.0-3.0); HEMATOCRIT 40.7 % (40.0-54.0); HEMOGLOBIN 14.2 g/dL (14.0-18.0); LYMPHOCYTES PERCENT AUTO 21.5 % (20.5-50.1); MEAN CORPUSCULAR HEMOGLOBIN 34.2 pg (27.0-34.0); MEAN CORPUSCULAR HGB CONC 34.9 g/dL (33.0-35.0); MEAN CORPUSCULAR VOLUME 98.1 fL (80-100); MONOCYTES PERCENT AUTO 8.8 % (2-8); PLATELET COUNT,PLT 259 10^3/uL (150-450); RED BLOOD CELL COUNT 4.15 10^6/uL (4.6-6.2); WHITE BLOOD CELL COUNT,WBC 7.4 10^3/uL (5.0-10.0)
[2023-04-20] MEDS ORDERED: Ondansetron 4 MG/2 ML SDV IV ONE (11:22)
[2023-04-20] MEDS ORDERED: Sodium Chloride 0.9% 1,000 ML IV ONE (11:22)
[2023-04-20 11:41] LABS: LACTIC ACID 1.4 mmol/L (0.4-2.0)
[2023-04-20 11:50] LABS: ALANINE AMINOTRANSFERASE,ALT 17 U/L (16-63); ALKALINE PHOSPHATASE 65 U/L (46-116); ANION GAP 11.2 mEq/L (7-13); ASPARTATE AMNIOTRANSFERASE,AST 14 U/L (15-37); BILIRUBIN TOTAL 0.5 mg/dL (0.2-1.0); BLOOD UREA NITROGEN,BUN 13 mg/dL (7-18); BUN/CREATININE RATIO 15.7 (No establ ref range); CALCIUM 8.7 mg/dL (8.5-10.1); CARBON DIOXIDE,CO2 29 mmol/L (21-32); CHLORIDE,CL 100 mmol/L (98-107); CREATINE KINASE,CK 41 U/L (39-308); CREATININE 0.83 mg/dL (0.70-1.30); EST CRCL DRUG DOSING (CG) 58.66 mL/min; GLUCOSE RANDOM 116 mg/dL (70-99); LACTATE DEHYDROGENASE,LDH 174 U/L (85-227); MAGNESIUM 1.6 mg/dL (1.8-2.4); POTASSIUM,K 3.2 mmol/L (3.5-5.1); PROTEIN TOTAL,TP 7.1 g/dL (6.4-8.2); SODIUM,NA 137 mmol/L (136-145)
[2023-04-20 11:57] LABS: A/G RATIO 0.73; ESTIMATED GFR 94 mL/min (>=60)
[2023-04-20] MEDS ORDERED: HYDROmorphone 1 MG/ML Syringe IVPUSH ONE (12:35)
[2023-04-20] MEDS ORDERED: Acetaminophen 325 MG Tab PO PRN (14:06)
[2023-04-20] MEDS ORDERED: Sennosides/Docusate Sodium 50-8.6 MG Tab PO PRN (14:06)
[2023-04-20] MEDS ORDERED: Albuterol/Ipratropium 3.0-0.5 MG/3 ML Neb Soln NEB PRN (14:06)
[2023-04-20] MEDS ORDERED: Magnesium Hydroxide 400 MG/5 ML Susp 30 ML Cup PO PRN (14:06)
[2023-04-20] MEDS ORDERED: Potassium Chloride 20 MEQ in Premix Bag 1 BAG IV ONE (14:08)
[2023-04-20] MEDS ORDERED: Metoprolol Tartrate 5 MG/5 ML SDV IVPUSH PRN (14:09)
[2023-04-20] MEDS ORDERED: Magnesium Sulfate/Water 2 GM in Premix Bag 1 BAG IV ONE (14:09)
[2023-04-20] MEDS ORDERED: Diazepam 5 MG Tab PO PRN (14:10)
[2023-04-20] MEDS ORDERED: MVI, Adult with Vitamin K 10 ML, Folic Acid 1 MG, Thiamine 100 MG in Lactated Ringers 1... IV ONE ×4 (14:11)
[2023-04-20] MEDS: Nicotine 21 MG/24 Hr Patch TRDERM SCH (15:21)
[2023-04-20 18:00] LABS: APPEARANCE,URINE CLEAR (CLEAR); BILIRUBIN,URINE NEGATIVE (NEGATIVE); COLOR,URINE YELLOW (YELLOW); GLUCOSE,URINE NEGATIVE (NEGATIVE); KETONES,URINE NEGATIVE (NEGATIVE); LEUKOCYTE ESTERASE,URINE NEGATIVE (NEGATIVE); NITRITE,URINE NEGATIVE (NEGATIVE); OCCULT BLOOD,URINE NEGATIVE (NEGATIVE); PROTEIN,URINE NEGATIVE (NEGATIVE); UROBILINOGEN,URINE 0.2 mg/dL (0.2-1.0)
[2023-04-20] MEDS: Ondansetron 4 MG/2 ML SDV IVPUSH PRN (19:22)
[2023-04-20] MEDS: HYDROmorphone 0.5 MG/0.5 ML Syringe IVPUSH PRN ×2 (19:27→22:33)
[2023-04-21] MEDS: Ondansetron 4 MG/2 ML SDV IVPUSH PRN (04:17)
[2023-04-21] MEDS: HYDROmorphone 0.5 MG/0.5 ML Syringe IVPUSH PRN ×7 (04:23→23:41)
[2023-04-21 06:47] LABS: BASOPHILS PERCENT AUTO 0.1 % (0.0-1.0); EOSINOPHILS PERCENT AUTO 5.2 % (1.0-3.0); HEMATOCRIT 35.2 % (40.0-54.0); HEMOGLOBIN 11.7 g/dL (14.0-18.0); LYMPHOCYTES PERCENT AUTO 22.6 % (20.5-50.1); MEAN CORPUSCULAR HEMOGLOBIN 33.7 pg (27.0-34.0); MEAN CORPUSCULAR HGB CONC 33.2 g/dL (33.0-35.0); MEAN CORPUSCULAR VOLUME 101.4 fL (80-100); MONOCYTES PERCENT AUTO 9.7 % (2-8); NEUTROPHILS PERCENT AUTO 62.4 % (42.2-75.2); PLATELET COUNT,PLT 218 10^3/uL (150-450); RED BLOOD CELL COUNT 3.47 10^6/uL (4.6-6.2); WHITE BLOOD CELL COUNT,WBC 6.7 10^3/uL (5.0-10.0)
[2023-04-21 06:53] LABS: ALBUMIN 2.4 g/dL (3.4-5.0); ANION GAP 9.8 mEq/L (7-13); BILIRUBIN TOTAL 0.3 mg/dL (0.2-1.0); BUN/CREATININE RATIO 21.3 (No establ ref range); CREATININE 0.75 mg/dL (0.70-1.30); EST CRCL DRUG DOSING (CG) 61.32 mL/min; MAGNESIUM 1.9 mg/dL (1.8-2.4); POTASSIUM,K 3.8 mmol/L (3.5-5.1); PROTEIN TOTAL,TP 5.8 g/dL (6.4-8.2)
[2023-04-21 06:57] LABS: A/G RATIO 0.71
[2023-04-21] MEDS: DULoxetine 30 MG Cap PO SCH (08:00)
[2023-04-21] MEDS: Nicotine 21 MG/24 Hr Patch TRDERM SCH (08:03)
[2023-04-21] MEDS ORDERED: Acetaminophen/HYDROcodone 325-5 MG Tab PO PRN (09:29)
[2023-04-21] MEDS: Polyethylene Glycol 3350 Powder 17 GM Packet PO PRN (11:41)
[2023-04-22] MEDS: HYDROmorphone 0.5 MG/0.5 ML Syringe IVPUSH PRN ×3 (01:53→06:07)
[2023-04-22 06:58] LABS: BASOPHILS PERCENT AUTO 0.2 % (0.0-1.0); EOSINOPHILS PERCENT AUTO 2.7 % (1.0-3.0); HEMATOCRIT 33.8 % (40.0-54.0); HEMOGLOBIN 11.2 g/dL (14.0-18.0); LYMPHOCYTES PERCENT AUTO 18.9 % (20.5-50.1); MEAN CORPUSCULAR HEMOGLOBIN 33.6 pg (27.0-34.0); MEAN CORPUSCULAR HGB CONC 33.1 g/dL (33.0-35.0); MEAN CORPUSCULAR VOLUME 101.5 fL (80-100); MONOCYTES PERCENT AUTO 8.1 % (2-8); NEUTROPHILS PERCENT AUTO 70.1 % (42.2-75.2); PLATELET COUNT,PLT 209 10^3/uL (150-450); RED BLOOD CELL COUNT 3.33 10^6/uL (4.6-6.2); WHITE BLOOD CELL COUNT,WBC 8.6 10^3/uL (5.0-10.0)
[2023-04-22 07:41] LABS: ALBUMIN 2.5 g/dL (3.4-5.0); ANION GAP 10.1 mEq/L (7-13); BILIRUBIN TOTAL 0.5 mg/dL (0.2-1.0); BUN/CREATININE RATIO 18.5 (No establ ref range); CREATININE 0.81 mg/dL (0.70-1.30); EST CRCL DRUG DOSING (CG) 56.78 mL/min; MAGNESIUM 1.6 mg/dL (1.8-2.4); POTASSIUM,K 4.1 mmol/L (3.5-5.1); PROTEIN TOTAL,TP 5.9 g/dL (6.4-8.2)
[2023-04-22 07:43] LABS: A/G RATIO 0.74
[2023-04-22] MEDS ORDERED: fentaNYL 12 MCG/HR Transdermal Patch TRDERM SCH (09:00)
[2023-04-22] MEDS: DULoxetine 30 MG Cap PO SCH (09:31)
[2023-04-22] MEDS: Nicotine 21 MG/24 Hr Patch TRDERM SCH (09:31)
[2023-04-22] MEDS: fentaNYL 12 MCG/HR Transdermal Patch TRDERM SCH (16:22)
[2023-04-22] MEDS: Acetaminophen/oxyCODONE 325-5 MG Tab PO PRN ×2 (16:24→21:30)
[2023-04-22] MEDS: Check FENTANYL Patch TRDERM SCH (21:29)
[2023-04-23 06:48] LABS: BASOPHILS PERCENT AUTO 0.1 % (0.0-1.0); EOSINOPHILS PERCENT AUTO 2.4 % (1.0-3.0); HEMATOCRIT 35.4 % (40.0-54.0); LYMPHOCYTES PERCENT AUTO 15.3 % (20.5-50.1); MEAN CORPUSCULAR HEMOGLOBIN 33.8 pg (27.0-34.0); MEAN CORPUSCULAR HGB CONC 33.9 g/dL (33.0-35.0); MEAN CORPUSCULAR VOLUME 99.7 fL (80-100); MONOCYTES PERCENT AUTO 7.3 % (2-8); NEUTROPHILS PERCENT AUTO 74.9 % (42.2-75.2); PLATELET COUNT,PLT 197 10^3/uL (150-450); RED BLOOD CELL COUNT 3.55 10^6/uL (4.6-6.2); WHITE BLOOD CELL COUNT,WBC 9.6 10^3/uL (5.0-10.0)
[2023-04-23 07:03] LABS: ALBUMIN 2.5 g/dL (3.4-5.0); ANION GAP 8.8 mEq/L (7-13); BILIRUBIN TOTAL 0.5 mg/dL (0.2-1.0); BUN/CREATININE RATIO 21.7 (No establ ref range); CALCIUM 8.3 mg/dL (8.5-10.1); CREATININE 0.69 mg/dL (0.70-1.30); EST CRCL DRUG DOSING (CG) 66.65 mL/min; MAGNESIUM 1.7 mg/dL (1.8-2.4); POTASSIUM,K 3.8 mmol/L (3.5-5.1); PROTEIN TOTAL,TP 6.1 g/dL (6.4-8.2)
[2023-04-23 07:09] LABS: A/G RATIO 0.69
[2023-04-23] MEDS: Acetaminophen/oxyCODONE 325-5 MG Tab PO PRN ×4 (07:38→21:56)
[2023-04-23] MEDS: DULoxetine 30 MG Cap PO SCH (09:55)
[2023-04-23] MEDS: Polyethylene Glycol 3350 Powder 17 GM Packet PO PRN (09:56)
[2023-04-23] MEDS: Nicotine 21 MG/24 Hr Patch TRDERM SCH (09:57)
[2023-04-23] MEDS: HYDROmorphone 0.5 MG/0.5 ML Syringe IVPUSH PRN (20:17)
[2023-04-23] MEDS: Check FENTANYL Patch TRDERM SCH (21:07)
[2023-04-24] MEDS: HYDROmorphone 0.5 MG/0.5 ML Syringe IVPUSH PRN ×2 (01:40→20:02)
[2023-04-24] MEDS: fentaNYL 12 MCG/HR Transdermal Patch TRDERM SCH (05:44)
[2023-04-24] MEDS: DULoxetine 30 MG Cap PO SCH (08:11)
[2023-04-24] MEDS: Nicotine 21 MG/24 Hr Patch TRDERM SCH (08:11)
[2023-04-24] MEDS: Acetaminophen/oxyCODONE 325-5 MG Tab PO PRN ×4 (08:11→20:23)
[2023-04-24] MEDS: Check FENTANYL Patch TRDERM SCH (20:05)
[2023-04-25] MEDS: Acetaminophen/oxyCODONE 325-5 MG Tab PO PRN ×6 (00:28→22:20)
[2023-04-25] MEDS: HYDROmorphone 0.5 MG/0.5 ML Syringe IVPUSH PRN ×6 (00:28→20:16)
[2023-04-25] MEDS: DULoxetine 30 MG Cap PO SCH (08:13)
[2023-04-25] MEDS: Nicotine 21 MG/24 Hr Patch TRDERM SCH (08:14)
[2023-04-25] MEDS: amLODIPine 5 MG Tab PO SCH (10:00)
[2023-04-25] MEDS: fentaNYL 12 MCG/HR Transdermal Patch TRDERM SCH (16:09)
[2023-04-25] MEDS: Polyethylene Glycol 3350 Powder 17 GM Packet PO PRN (16:11)
[2023-04-25] MEDS: hydrALAZINE 20 MG/ML SDV IVPUSH PRN (20:12)
[2023-04-25] MEDS: Check FENTANYL Patch TRDERM SCH (20:20)
[2023-04-26] MEDS: HYDROmorphone 0.5 MG/0.5 ML Syringe IVPUSH PRN ×4 (01:16→18:39)
[2023-04-26] MEDS: Acetaminophen/oxyCODONE 325-5 MG Tab PO PRN ×2 (05:39→23:35)
[2023-04-26] MEDS ORDERED: hydrOXYzine HCl 25 MG Tab PO PRN (07:35)
[2023-04-26] MEDS: Nicotine 21 MG/24 Hr Patch TRDERM SCH (09:53)
[2023-04-26] MEDS: DULoxetine 30 MG Cap PO SCH (09:54)
[2023-04-26] MEDS: amLODIPine 5 MG Tab PO SCH (09:54)
[2023-04-26] MEDS: Check FENTANYL Patch TRDERM SCH (21:08)
[2023-04-26] MEDS: hydrALAZINE 20 MG/ML SDV IVPUSH PRN (23:49)
[2023-04-27] MEDS ORDERED: fentaNYL 12 MCG/HR Transdermal Patch TRDERM SCH ×2 (06:00→09:00)
[2023-04-27 07:41] VITALS: BP 136/63; PULSE 76
[2023-04-27] MEDS ORDERED: Bisacodyl 10 MG Supp RECTAL ONE (07:43)
[2023-04-27] MEDS: Nicotine 21 MG/24 Hr Patch TRDERM SCH (09:17)
[2023-04-27] MEDS: DULoxetine 30 MG Cap PO SCH (09:18)
[2023-04-27] MEDS: amLODIPine 5 MG Tab PO SCH (09:19)
[2023-04-27] MEDS: HYDROmorphone 0.5 MG/0.5 ML Syringe IVPUSH PRN (09:20)
[2023-04-27] MEDS ORDERED: Check FENTANYL Patch TRDERM SCH (21:00)
== END 2023-04-27 10:58 | DRG 641 ==
LOC: DL.ED 10:52 → DL.MS 13:02 → UNDOADMOB 13:02 → DL.MS 14:06 → INTOOBSV 04-23 11:14 → OBSVTOIN 04-23 11:14 → DL.MS 04-23 11:14
PROVIDERS: ADMIT Internal Medicine; ATTEND Internal Medicine
PROC: 0T9B70Z Drainage of Bladder with Drainage Device, Via Natural or Artificial Opening (ICD-10-PCS; principal; 2023-04-22)
DX: R53.1 Weakness (principal); E43 Unspecified severe protein-calorie malnutrition; C34.11 Malignant neoplasm of upper lobe, right bronchus or lung; Z68.1 Body mass index [BMI] 19.9 or less, adult; E86.0 Dehydration; E78.00 Pure hypercholesterolemia, unspecified; I10 Essential (primary) hypertension; G93.89 Other specified disorders of brain; J44.9 Chronic obstructive pulmonary disease, unspecified; Z74.1 Need for assistance with personal care; I48.91 Unspecified atrial fibrillation; Z66 Do not resuscitate; K59.09 Other constipation; K21.9 Gastro-esophageal reflux disease without esophagitis; M54.9 Dorsalgia, unspecified; G89.29 Other chronic pain; F32.A Depression, unspecified; F41.9 Anxiety disorder, unspecified; R29.6 Repeated falls; Z87.891 Personal history of nicotine dependence; W01.0XXA Fall on same level from slipping, tripping and stumbling without subsequent striking against object, initial encounter; S09.90XA Unspecified injury of head, initial encounter; E88.A Wasting disease (syndrome) due to underlying condition; E87.6 Hypokalemia; E83.42 Hypomagnesemia; I25.10 Atherosclerotic heart disease of native coronary artery without angina pectoris; I48.0 Paroxysmal atrial fibrillation; R73.9 Hyperglycemia, unspecified; F17.210 Nicotine dependence, cigarettes, uncomplicated; M51.36 Other intervertebral disc degeneration, lumbar region; Z11.52 Encounter for screening for COVID-19; Z79.02 Long term (current) use of antithrombotics/antiplatelets; Z79.899 Other long term (current) drug therapy; Z95.1 Presence of aortocoronary bypass graft; Z86.73 Personal history of transient ischemic attack (TIA), and cerebral infarction without residual deficits; Z95.5 Presence of coronary angioplasty implant and graft; Z86.010 Personal history of colon polyps; Z95.828 Presence of other vascular implants and grafts; W19.XXXA Unspecified fall, initial encounter
CPT/HCPCS: 36415; 51702; 70450; 71045; 72125; 80053; 81003; 82550; 83605; 83615; 83735; 84145; 85025; 96361; 96365; 96366; 96368; 96374; 96375; 96376; 99223; 99285; 99285-25; A9270-GY; G0378; J0360; J1170; J2405; J3411; J3475; J3480; J3490; J7030; J7120; U0002

== ENCOUNTER 2023-06-09 06:49 | Emergency (ER) | payer MEDICARE, MEDICAID ==
[2023-06-09 06:58] VITALS: BP 138/89; PULSE 87
[2023-06-09] MEDS ORDERED: Sodium Chloride 0.9% 1,000 ML IV ONE (08:44)
[2023-06-09] MEDS ORDERED: Morphine 4 MG/ML Syringe IVPUSH ONE (08:45)
== END 2023-06-09 11:10 | disposition hospice, home (50) ==
LOC: DL.ED 06:49
DX: I62.00 Nontraumatic subdural hemorrhage, unspecified (principal); S72.109 Unspecified trochanteric fracture of unspecified femur; I10 Essential (primary) hypertension; J44.9 Chronic obstructive pulmonary disease, unspecified; F17.210 Nicotine dependence, cigarettes, uncomplicated; Z95.5 Presence of coronary angioplasty implant and graft; W19.XXXA Unspecified fall, initial encounter; Z79.899 Other long term (current) drug therapy
CPT/HCPCS: 70450; 72125; 72128; 72131; 72192; 96361; 96374; 99284; 99285; J2270; J7030